=== PATIENT | female | born 1975 | race African-American/Black ===

== ENCOUNTER → 2017-05-10 | Outpatient (CLI) | payer BC ==
[~2017-05-10] MED LIST: IPRA4AER IH; mucinex PO; nebulizer; no routine meds
--- NOTE | 2017-05-10 08:34 | RAD ---
Single view of the Chest 05/10/2017 2:00 AM Indication: COUGH, CHEST CONGESTION Comparison: Chest radiograph April 14, 2014 Findings: There is no focal consolidation or infiltrate identified. There is no effusion or pneumothorax. The cardiomediastinal silhouette and pulmonary vasculature are within normal limits. No osseous abnormality is identified. Impression: No evidence of acute cardiopulmonary process.
== END | disposition home or self-care (01) ==
LOC: PMG 08:11
PROVIDERS: ATTEND Physician Assistant Medical
DX: R09.89 Other specified symptoms and signs involving the circulatory and respiratory systems (principal); Z87.891 Personal history of nicotine dependence
CPT/HCPCS: 71046

== ENCOUNTER → 2020-01-16 | Outpatient (CLI) | payer BC ==
[~2020-01-16] MED LIST changes: +ALBU2.5V8 IH; +BUDE10.2 IH; +FLUT9.9S NS; +RIZA10TA PO
== END ==
LOC: LAB 13:39
PROVIDERS: ATTEND Nurse Anesthetist, Certified Registered
DX: Z01.812 Encounter for preprocedural laboratory examination (principal); Z12.11 Encounter for screening for malignant neoplasm of colon; Z20.828 Contact with and (suspected) exposure to other viral communicable diseases
CPT/HCPCS: U0003-CS

== ENCOUNTER → 2020-01-19 | Day surgery (SDC) | payer BC ==
[~2020-01-19] MED LIST changes: +IPRATRPIUM/ALBUTEROL 0.5/2.5MG 3 ML NEBU. NEB PRN; +IV RINGERS SOLUTION,LACTATED 1,000 ML IV SCH; +LIDOCAINE 2% PF 5 ML VIAL. ONE; +MIDAZOLAM HCL PF 2 MG/2 ML VIAL. IV ONE; +ONDANSETRON PF 4 MG/2 ML VIAL. IV PRN; +PROPOFOL 10,000 MCG/ML (20ML) VIAL IV ONE
[2020-01-19 11:09] LABS: U PREG PATIENT NEGATIVE (NEG)
[2020-01-19 13:55] VITALS: BP 136/98
--- NOTE | 2020-01-23 17:06 | PATHOLOGY ---
[facility] Accession Number: [id number] . 01 Material submitted: . PART A: stomach - BX ANTRUM GASTRITIS PART B: rectum - BX RECTAL POLYP PART C: colon - BX TRANSVERSE POLYP. Modifiers: transverse PART D: cecum - POLYPECTOMY CECAL POLYP PART E: colon - POLYPECTOMY ASCENDING POLYP. Modifiers: ascending PART F: colon - BX DESCENDING POLYP. Modifiers: descending . 01 Clinical history: . GERD, CONSTIPATION . 02 Diagnosis: A. Biopsy antrum gastritis: - Moderate chronic antral gastritis, typical of reactive gastropathy (chemical gastritis), negative for Helicobacter pylori organisms and dysplasia. . B. Biopsy rectal polyp: - Hyperplastic polyp. . C. Biopsy transverse polyp: - Hyperplastic polyp. . D. Polypectomy cecal polyp: - Serrated adenoma, negative for high grade dysplasia. . E. Polypectomy ascending polyp: - Hyperplastic polyp. . F. Biopsy descending polyp: - Hyperplastic polyp. . (ROZINA:[facility]; 01/23/2020) [facility], [facility] 01/23/2020 1349 Local . 02 Comment: Special stain (A): H. pylori immuno. . (ROZINA:mm; 01/23/2020) . 02 Electronically signed: . Wilton Noyola MD, Pathologist NPI- [id number] . 01 Gross description: . A. The specimen is received in formalin, labeled "Cindy Enrrique, biopsy antrum gastritis". Received are two segments of pale dumont soft tissue measuring 0.3 cm each in maximum dimensions. The specimen is submitted entirely in cassette A1. . B. The specimen is received in formalin, labeled "Cindy Osuna, biopsy rectal polyp". Received are two segments of pale dumont soft tissue ranging in size from 0.3 to 0.4 cm in maximum dimensions. The specimen is submitted entirely in cassette B1. . C. The specimen is received in formalin, labeled "Cindy Osuna, biopsy transverse polyp". Received is a segment of pale dumont soft tissue measuring 0.3 cm in maximum dimensions. The specimen is submitted entirely in cassette C1. . D. The specimen is received in formalin, labeled "Cindy Osuna, polyp cecal". Received is a segment of pale dumont soft tissue measuring 0.8 cm in maximum dimensions. The surgical margin is inked and the segment is bisected. The specimen is submitted entirely in cassette D1. . E. The specimen is received in formalin, labeled "Cindy Osuna, polyp ascending". Received are three segments of pale dumont soft tissue ranging in size from 0.4 to 0.9 cm in maximum dimensions. The specimen is submitted entirely in cassette E1. . F. The specimen is received in formalin, labeled "Cindy Osuna, descending polyp". Received are two segments of pale dumont soft tissue ranging in size from 0.3 to 0.4 cm in maximum dimensions. The specimen is submitted entirely in cassette F1. ([facility]AA; 01/22/2020) QAC/QAC 01/22/2020 1722 Local . 02 Pathologist provided ICD-10: K29.50, K62.1, K63.5, D12.0, K21.9, K59.00 . 02 CPT . 225379, [id number], [id number], 296348, [id number], [id number], [id number] Specimen Comment: A courtesy copy of this report has been sent to [phone], [phone] Specimen Comment: [id number] Specimen Comment: Report sent to / DR SHEA Performed at: 01 [facility] [address], [place], [place] [id number] MD Brenden Little MD Phone: [phone] Performed at: 02 [facility] [place] [address] [place], [place] [id number] MD Wilton Noyola MD Phone: [phone]
== END | disposition home or self-care (01) ==
LOC: SURG 10:17
PROVIDERS: ATTEND Internal Medicine Gastroenterology
DX: K59.00 Constipation, unspecified (principal); D12.0 Benign neoplasm of cecum; K64.0 First degree hemorrhoids; K29.50 Unspecified chronic gastritis without bleeding; K21.00 Gastro-esophageal reflux disease with esophagitis, without bleeding; M19.90 Unspecified osteoarthritis, unspecified site; J44.9 Chronic obstructive pulmonary disease, unspecified; G43.909 Migraine, unspecified, not intractable, without status migrainosus; E66.01 Morbid (severe) obesity due to excess calories; Z68.36 Body mass index [BMI] 36.0-36.9, adult; Z90.49 Acquired absence of other specified parts of digestive tract; Z98.890 Other specified postprocedural states; Z88.1 Allergy status to other antibiotic agents; Z88.8 Allergy status to other drugs, medicaments and biological substances; Z79.899 Other long term (current) drug therapy
CPT/HCPCS: 43239; 45380; 45381; 45385; 81025; 88305; 88342; J2001; J2704; J7120